=== PATIENT | male | born 1970 | race Caucasian/White ===

== ENCOUNTER 2022-01-24 08:47 | Outpatient (CLI) | payer OTHER | END 2022-01-24 09:01 | disposition home or self-care (01) | LOC: SONOGRAMA 08:47 | PROVIDERS: ATTEND General Practice | DX: N20.0 Calculus of kidney (principal) ==

== ENCOUNTER 2022-02-24 08:00 | Outpatient (CLI) | payer OTHER | END 2022-02-24 08:05 | disposition home or self-care (01) | LOC: PPH VACUNA 08:00 | PROVIDERS: ATTEND Emergency Medicine Pediatric Emergency Medicine | DX: Z23 Encounter for immunization (principal) ==